=== PATIENT | male | born 1990 | race African-American/Black ===

== ENCOUNTER 2021-06-02 00:35 | Inpatient (IN) ==
[2021-06-02] MEDS ORDERED: SODIUM CHLORIDE 0.9% 1,000 ML IV STA (01:02)
[2021-06-02] MEDS ORDERED: THIAMINE INJ 100 MG, FOLIC ACID INJ 1 MG, MAGNESIUM SULF INJ 2 GM, MULTIVITAMIN INJ 10 ... IV STA (01:02)
[2021-06-02 01:29] LABS: Basophils # 0.1 10*3/uL (0.0-0.2); Basophils % 2.4 % (0.0-0.8); Eosinophils # 0.2 10*3/uL (0.0-0.87); Eosinophils % 3.3 % (0.00-10.9); Hematocrit 39.9 VOL% (42.0-52.0); Hemoglobin 14.2 GM/DL (14.0-18.0); Immature Granulocytes % 0.4 %; Immature Granulocytes Absolute 0.02 #; Lymphocytes # 1.6 10*3/uL (1.4-4.0); Lymphocytes % 35.8 % (21.2-54.2); Mean Corpuscular HGB Conc 35.6 GM/DL (32-36); Mean Corpuscular Volume 100.8 FL (87-102); Mean Platelet Volume 10.1 FL (9.6-12.0); Monocytes % 17.4 % (1.7-12.7); Neutrophils % 40.7 % (38.7-73.9); Platelet Count 122 T/CUMM (130-400); Red Blood Count 3.96 MC/CUMM (3.8-5.5); Red Cell Distribution Width 12.8 % (9.3-17.3); White Blood Count 4.5 T/CUMM (4-12)
[2021-06-02 01:40] LABS: Bilirubin,Urine Negative (Negative); Blood, Urine Negative (Negative); Glucose,Urine (UA) Negative (Negative); Ketones,Urine Negative (Negative); Nitrite,Urine Negative (Negative); Protein,Urine Negative; RBC,Urine 3 /HPF (0-4); Squamous Epithelial Cell,Urine Occasional /HPF (0-10); Urine Appearance CLEAR (Clear); Urine Color Yellow (Yellow); Urine Specific Gravity 1.006 (1.001-1.035)
[2021-06-02 01:47] LABS: Barbiturates Screen,Urine Negative (Negative); Benzodiazepines Screen,Urine Negative (Negative); Cannabinoid Screen,Urine Negative (Negative); Opiate Screen,Urine Negative (Negative); Phencyclidine Screen,Urine Negative (Negative)
[2021-06-02 02:12] LABS: Albumin 4.3 G/DL (3.4-5.0); Bilirubin,Total 0.7 MG/DL (0.20-1.00); Calcium 9.3 MG/DL (8.5-10.1); Osmolality,Calculated 273.7 MOS/KG (273-304); Potassium 3.2 MMOL/L (3.5-5.1); Total Protein 8.2 G/DL (6.4-8.2)
[2021-06-02 02:33] LABS: Eosinophils 2 % (0-10); Lymphocytes 29 % (20-55); Platelet Estimate Normal; Segmented Neutrophils 56 % (50-85); Total Cells Counted 100
[2021-06-02 02:34] LABS: Macrocytosis Slight
[2021-06-02 02:36] LABS: Polychromasia Slight
[2021-06-02] MEDS ORDERED: ACETAMINOPHEN 325 MG TABLET PO PRN (05:07)
[2021-06-02] MEDS ORDERED: SODIUM CHLORIDE 0.9% 1,000 ML IV SCH (05:30)
[2021-06-02] MEDS: ENOXAPARIN 40 MG/0.4 ML SYRINGE SUBCUT SCH (06:42)
[2021-06-02] MEDS ORDERED: PANTOPRAZOLE 40 MG TABLET PO SCH (09:00)
[2021-06-02] MEDS: ONDANSETRON 4 MG/2 ML VIAL IV PRN ×2 (10:38→20:18)
[2021-06-02] MEDS: MORPHINE 2 MG/1 ML SYRINGE IV PRN ×3 (10:42→21:25)
[2021-06-02 13:15] LABS: Hepatitis B Core IgM Quant 0.09 Index; Hepatitis B Surface Ag Quant < 0.10 Index; Hepatitis B Surface Ag Result Non-Reactive (NonReactive); Hepatitis C Virus Ab Quant < 0.02 Index; Hepatitis C Virus Ab Result Non-Reactive (NonReactive)
[2021-06-02] MEDS ORDERED: LORazepam 2 MG/1 ML VIAL IV PRN (13:29)
[2021-06-02] MEDS: PANTOPRAZOLE 40 MG VIAL IV SCH (13:57)
[2021-06-02] MEDS: POTASSIUM CHLORIDE RIDER 10 MEQ/100 ML PREMIX IV SCH ×5 (13:57→20:19)
[2021-06-02] MEDS ORDERED: FOLIC ACID IV SCH (14:00)
[2021-06-02] MEDS ORDERED: [UNRECOGNIZED DRUG - OTHER] IV SCH (14:00)
[2021-06-02] MEDS ORDERED: THIAMINE IV SCH (14:00)
[2021-06-02] MEDS ORDERED: MULTIVITAMIN IV SCH (14:00)
[2021-06-02] MEDS ORDERED: THIAMINE INJ 100 MG, FOLIC ACID INJ 1 MG, MULTIVITAMIN INJ 10 ML in SODIUM CHLORIDE 0.9... IV SCH (14:00)
[2021-06-02] MEDS ORDERED: LORazepam 2 MG/1 ML VIAL IV ONE (14:58)
[2021-06-02] MEDS: [UNRECOGNIZED DRUG - OTHER] IV SCH (15:25)
[2021-06-02] MEDS: MULTIVITAMIN IV SCH (15:25)
[2021-06-02] MEDS: FOLIC ACID IV SCH (15:25)
[2021-06-02] MEDS: THIAMINE IV SCH (15:25)
[2021-06-02 15:35] LABS: Basophils # 0.1 10*3/uL (0.0-0.2); Basophils % 1.6 % (0.0-0.8); Eosinophils # 0.1 10*3/uL (0.0-0.87); Eosinophils % 2.5 % (0.00-10.9); Hematocrit 32.8 VOL% (42.0-52.0); Hemoglobin 11.4 GM/DL (14.0-18.0); Immature Granulocytes % 0.9 %; Immature Granulocytes Absolute 0.04 #; Lymphocytes # 1.6 10*3/uL (1.4-4.0); Lymphocytes % 36.2 % (21.2-54.2); Mean Corpuscular HGB Conc 34.8 GM/DL (32-36); Mean Corpuscular Volume 104.8 FL (87-102); Mean Platelet Volume 9.9 FL (9.6-12.0); Monocytes % 18.3 % (1.7-12.7); Neutrophils % 40.5 % (38.7-73.9); Platelet Count 84 T/CUMM (130-400); Red Blood Count 3.13 MC/CUMM (3.8-5.5); Red Cell Distribution Width 12.9 % (9.3-17.3); White Blood Count 4.4 T/CUMM (4-12)
[2021-06-02 16:01] LABS: Albumin 3.7 G/DL (3.4-5.0); Osmolality,Calculated 270.8 MOS/KG (273-304); Potassium 2.6 MMOL/L (3.5-5.1); Total Protein 6.8 G/DL (6.4-8.2)
[2021-06-02 16:31] LABS: Eosinophils 6 % (0-10); Lymphocytes 22 % (20-55); Segmented Neutrophils 64 % (50-85); Total Cells Counted 100
[2021-06-02 16:32] LABS: Hypochromasia 1+; Platelet Estimate Decreased
[2021-06-02] MEDS: LORazepam 2 MG/1 ML VIAL IV PRN ×2 (18:30→22:27)
[2021-06-02] MEDS: levETIRAcetam 500 MG TABLET PO SCH (20:18)
[2021-06-03] MEDS: MORPHINE 2 MG/1 ML SYRINGE IV PRN ×5 (01:22→19:46)
[2021-06-03] MEDS: LORazepam 2 MG/1 ML VIAL IV PRN ×4 (02:31→22:10)
[2021-06-03] MEDS: MULTIVITAMIN IV SCH ×2 (03:42→09:33)
[2021-06-03] MEDS: THIAMINE IV SCH ×2 (03:42→09:33)
[2021-06-03] MEDS: [UNRECOGNIZED DRUG - OTHER] IV SCH ×2 (03:42→09:33)
[2021-06-03] MEDS: FOLIC ACID IV SCH ×2 (03:42→09:33)
[2021-06-03] MEDS: ENOXAPARIN 40 MG/0.4 ML SYRINGE SUBCUT SCH (04:35)
[2021-06-03 05:25] LABS: Basophils # 0.1 10*3/uL (0.0-0.2); Basophils % 1.4 % (0.0-0.8); Eosinophils # 0.2 10*3/uL (0.0-0.87); Eosinophils % 3.6 % (0.00-10.9); Hematocrit 37.4 VOL% (42.0-52.0); Hemoglobin 12.8 GM/DL (14.0-18.0); Immature Granulocytes % 0.2 %; Immature Granulocytes Absolute 0.01 #; Lymphocytes # 1.3 10*3/uL (1.4-4.0); Lymphocytes % 29.8 % (21.2-54.2); Mean Corpuscular HGB Conc 34.2 GM/DL (32-36); Mean Corpuscular Volume 103.9 FL (87-102); Mean Platelet Volume 10.8 FL (9.6-12.0); NRBC # 0.02 10*3/uL; Platelet Count 92 T/CUMM (130-400); Red Cell Distribution Width 12.5 % (9.3-17.3); White Blood Count 4.2 T/CUMM (4-12)
[2021-06-03 05:35] LABS: Risk Ratio 2.47; VLDL Cholesterol 10.4 MG/DL
[2021-06-03 05:36] LABS: Albumin 3.5 G/DL (3.4-5.0); Bilirubin,Total 1.5 MG/DL (0.20-1.00); Calcium 8.7 MG/DL (8.5-10.1); Potassium 3.2 MMOL/L (3.5-5.1); Total Protein 6.8 G/DL (6.4-8.2)
[2021-06-03] MEDS ORDERED: POTASSIUM CHLORIDE 20 MEQ TABLET PO ONE (05:57)
[2021-06-03 06:08] LABS: Anisocytosis 1+; Atypical Lymphocytes Few; Band Neutrophils 3 % (0-10); Eosinophils 6 % (0-10); Lymphocytes 30 % (20-55); Macrocytosis 1+; Nucleated Red Blood Cells 1 (0-5); Platelet Estimate Decreased; Segmented Neutrophils 48 % (50-85); Smudge Cells Few; Total Cells Counted 100
[2021-06-03] MEDS ORDERED: FOLIC ACID 1 MG TABLET PO SCH (09:00)
[2021-06-03] MEDS ORDERED: THIAMINE 100 MG TABLET PO SCH (09:00)
[2021-06-03] MEDS ORDERED: MULTIVITAMIN (CENTRUM) TABLET PO SCH (09:00)
[2021-06-03] MEDS: levETIRAcetam 500 MG TABLET PO SCH ×2 (09:23→20:29)
[2021-06-03] MEDS: PANTOPRAZOLE 40 MG VIAL IV SCH (09:24)
[2021-06-03] MEDS: DEXTROSE 5% LACTATED RINGERS 1,000 ML IV SCH ×2 (09:50→20:08)
[2021-06-03] MEDS: chlordiazePOXIDE 25 MG CAPSULE PO SCH ×2 (15:04→20:29)
[2021-06-03] MEDS: ONDANSETRON 4 MG/2 ML VIAL IV PRN (22:12)
[2021-06-04] MEDS: MORPHINE 2 MG/1 ML SYRINGE IV PRN ×4 (00:18→22:41)
[2021-06-04] MEDS: LORazepam 2 MG/1 ML VIAL IV PRN ×2 (02:31→09:10)
[2021-06-04] MEDS: DEXTROSE 5% LACTATED RINGERS 1,000 ML IV SCH ×3 (05:27→22:45)
[2021-06-04] MEDS: ENOXAPARIN 40 MG/0.4 ML SYRINGE SUBCUT SCH (05:27)
[2021-06-04 06:32] LABS: Basophils # 0.1 10*3/uL (0.0-0.2); Basophils % 1.2 % (0.0-0.8); Eosinophils # 0.3 10*3/uL (0.0-0.87); Eosinophils % 5.8 % (0.00-10.9); Hematocrit 37.2 VOL% (42.0-52.0); Hemoglobin 12.7 GM/DL (14.0-18.0); Immature Granulocytes % 0.4 %; Immature Granulocytes Absolute 0.02 #; Lymphocytes # 1.7 10*3/uL (1.4-4.0); Lymphocytes % 33.9 % (21.2-54.2); Mean Corpuscular HGB Conc 34.1 GM/DL (32-36); Mean Corpuscular Volume 104.8 FL (87-102); Mean Platelet Volume 11.7 FL (9.6-12.0); Monocytes % 15.5 % (1.7-12.7); Neutrophils % 43.2 % (38.7-73.9); Platelet Count 100 T/CUMM (130-400); Red Blood Count 3.55 MC/CUMM (3.8-5.5); Red Cell Distribution Width 12.3 % (9.3-17.3)
[2021-06-04 06:48] LABS: Albumin 3.5 G/DL (3.4-5.0); Bilirubin,Total 2.3 MG/DL (0.20-1.00); Calcium 9.2 MG/DL (8.5-10.1); Potassium 3.5 MMOL/L (3.5-5.1); Total Protein 6.6 G/DL (6.4-8.2)
[2021-06-04 07:42] LABS: Hypochromasia 1+; Platelet Estimate Decreased
[2021-06-04] MEDS: MULTIVITAMIN (BEROCCA) TABLET PO SCH (09:11)
[2021-06-04] MEDS: levETIRAcetam 500 MG TABLET PO SCH ×2 (09:11→22:29)
[2021-06-04] MEDS: FOLIC ACID 1 MG TABLET PO SCH (09:11)
[2021-06-04] MEDS: THIAMINE 100 MG TABLET PO SCH (09:11)
[2021-06-04] MEDS: chlordiazePOXIDE 25 MG CAPSULE PO SCH ×3 (09:11→22:29)
[2021-06-04] MEDS ORDERED: MORPHINE 2 MG/1 ML SYRINGE IV ONE (10:55)
[2021-06-05] MEDS: LORazepam 2 MG/1 ML VIAL IV PRN (01:44)
[2021-06-05] MEDS: MORPHINE 2 MG/1 ML SYRINGE IV PRN ×5 (03:35→20:55)
[2021-06-05] MEDS: ENOXAPARIN 40 MG/0.4 ML SYRINGE SUBCUT SCH (05:52)
[2021-06-05 06:25] LABS: Basophils # 0.1 10*3/uL (0.0-0.2); Basophils % 0.9 % (0.0-0.8); Eosinophils # 0.2 10*3/uL (0.0-0.87); Eosinophils % 4.3 % (0.00-10.9); Hematocrit 34.7 VOL% (42.0-52.0); Hemoglobin 11.8 GM/DL (14.0-18.0); Immature Granulocytes % 1.4 %; Immature Granulocytes Absolute 0.08 #; Lymphocytes # 1.7 10*3/uL (1.4-4.0); Lymphocytes % 31.3 % (21.2-54.2); Mean Corpuscular Volume 106.1 FL (87-102); Mean Platelet Volume 11.4 FL (9.6-12.0); Monocytes % 18.3 % (1.7-12.7); NRBC # 0.02 10*3/uL; Neutrophils % 43.8 % (38.7-73.9); Platelet Count 110 T/CUMM (130-400); Red Blood Count 3.27 MC/CUMM (3.8-5.5); Red Cell Distribution Width 12.3 % (9.3-17.3); White Blood Count 5.5 T/CUMM (4-12)
[2021-06-05 06:31] LABS: Eosinophils 2 % (0-10); Lymphocytes 35 % (20-55); Platelet Estimate Decreased; Segmented Neutrophils 57 % (50-85); Total Cells Counted 100
[2021-06-05 06:32] LABS: Hypochromasia Slight; Microcytosis Slight
[2021-06-05 06:54] LABS: Osmolality,Calculated 276.3 MOS/KG (273-304); Potassium 3.2 MMOL/L (3.5-5.1)
[2021-06-05] MEDS ORDERED: POTASSIUM CHLORIDE 20 MEQ TABLET PO ONE (08:00)
[2021-06-05] MEDS: DEXTROSE 5% LACTATED RINGERS 1,000 ML IV SCH ×2 (09:00→20:59)
[2021-06-05] MEDS: ONDANSETRON 4 MG/2 ML VIAL IV PRN (09:12)
[2021-06-05] MEDS: THIAMINE 100 MG TABLET PO SCH (09:33)
[2021-06-05] MEDS: FOLIC ACID 1 MG TABLET PO SCH (09:33)
[2021-06-05] MEDS: levETIRAcetam 500 MG TABLET PO SCH ×2 (09:34→20:55)
[2021-06-05] MEDS: MULTIVITAMIN (BEROCCA) TABLET PO SCH (09:34)
[2021-06-05] MEDS: chlordiazePOXIDE 25 MG CAPSULE PO SCH ×3 (09:34→20:54)
[2021-06-05] MEDS: NICOTINE 14 MG/24 HR PATCH TRANSDERM SCH (11:59)
[2021-06-05] MEDS: PANTOPRAZOLE 40 MG TABLET PO SCH (12:17)
[2021-06-06] MEDS: MORPHINE 2 MG/1 ML SYRINGE IV PRN ×6 (00:51→22:10)
[2021-06-06] MEDS: LORazepam 2 MG/1 ML VIAL IV PRN ×3 (02:45→20:34)
[2021-06-06] MEDS: ENOXAPARIN 40 MG/0.4 ML SYRINGE SUBCUT SCH (05:31)
[2021-06-06 06:20] LABS: Basophils # 0.1 10*3/uL (0.0-0.2); Basophils % 1.8 % (0.0-0.8); Eosinophils # 0.3 10*3/uL (0.0-0.87); Eosinophils % 5.5 % (0.00-10.9); Hematocrit 37.1 VOL% (42.0-52.0); Hemoglobin 12.4 GM/DL (14.0-18.0); Immature Granulocytes % 0.6 %; Immature Granulocytes Absolute 0.03 #; Lymphocytes # 1.9 10*3/uL (1.4-4.0); Lymphocytes % 37.9 % (21.2-54.2); Mean Corpuscular HGB Conc 33.4 GM/DL (32-36); Mean Corpuscular Volume 108.5 FL (87-102); Mean Platelet Volume 11.4 FL (9.6-12.0); Monocytes % 17.8 % (1.7-12.7); Neutrophils % 36.4 % (38.7-73.9); Platelet Count 104 T/CUMM (130-400); Red Blood Count 3.42 MC/CUMM (3.8-5.5); Red Cell Distribution Width 12.5 % (9.3-17.3); White Blood Count 5.1 T/CUMM (4-12)
[2021-06-06 06:40] LABS: Albumin 3.5 G/DL (3.4-5.0); Bilirubin,Total 1.1 MG/DL (0.20-1.00); Calcium 8.7 MG/DL (8.5-10.1); Osmolality,Calculated 274.4 MOS/KG (273-304); Potassium 3.7 MMOL/L (3.5-5.1); Total Protein 6.3 G/DL (6.4-8.2)
[2021-06-06 06:42] LABS: Eosinophils 4 % (0-10); Lymphocytes 48 % (20-55); Platelet Estimate Decreased; Segmented Neutrophils 41 % (50-85); Total Cells Counted 100
[2021-06-06 06:43] LABS: Hypochromasia Slight; Microcytosis Slight
[2021-06-06] MEDS ORDERED: MAGNESIUM SULF RIDER 2 GM/50 ML PREMIX IV PRN (07:20)
[2021-06-06] MEDS ORDERED: MAGNESIUM SULF RIDER 4 GM/100 ML PREMIX IV PRN (07:20)
[2021-06-06] MEDS: chlordiazePOXIDE 25 MG CAPSULE PO SCH ×3 (09:44→20:33)
[2021-06-06] MEDS: FOLIC ACID 1 MG TABLET PO SCH (09:44)
[2021-06-06] MEDS: MULTIVITAMIN (BEROCCA) TABLET PO SCH (09:44)
[2021-06-06] MEDS: levETIRAcetam 500 MG TABLET PO SCH ×2 (09:44→20:33)
[2021-06-06] MEDS: PANTOPRAZOLE 40 MG TABLET PO SCH (09:45)
[2021-06-06] MEDS: THIAMINE 100 MG TABLET PO SCH (09:45)
[2021-06-06] MEDS: NICOTINE 14 MG/24 HR PATCH TRANSDERM SCH (09:45)
[2021-06-06] MEDS: DEXTROSE 5% LACTATED RINGERS 1,000 ML IV SCH ×2 (13:11→23:49)
[2021-06-07] MEDS: LORazepam 2 MG/1 ML VIAL IV PRN (01:04)
[2021-06-07] MEDS: MORPHINE 2 MG/1 ML SYRINGE IV PRN ×3 (02:22→10:45)
[2021-06-07] MEDS: ENOXAPARIN 40 MG/0.4 ML SYRINGE SUBCUT SCH (05:14)
[2021-06-07 05:49] LABS: Basophils # 0.1 10*3/uL (0.0-0.2); Basophils % 1.4 % (0.0-0.8); Eosinophils # 0.3 10*3/uL (0.0-0.87); Hematocrit 35.1 VOL% (42.0-52.0); Hemoglobin 11.8 GM/DL (14.0-18.0); Immature Granulocytes % 0.6 %; Immature Granulocytes Absolute 0.03 #; Lymphocytes # 1.6 10*3/uL (1.4-4.0); Lymphocytes % 32.1 % (21.2-54.2); Mean Corpuscular HGB Conc 33.6 GM/DL (32-36); Mean Corpuscular Volume 108.7 FL (87-102); Mean Platelet Volume 10.7 FL (9.6-12.0); Monocytes % 21.6 % (1.7-12.7); Neutrophils % 39.3 % (38.7-73.9); Platelet Count 151 T/CUMM (130-400); Red Blood Count 3.23 MC/CUMM (3.8-5.5); Red Cell Distribution Width 12.6 % (9.3-17.3)
[2021-06-07 06:15] LABS: Eosinophils 4 % (0-10); Lymphocytes 33 % (20-55); Segmented Neutrophils 49 % (50-85); Total Cells Counted 100
[2021-06-07 06:16] LABS: Hypochromasia Slight; Microcytosis Slight; Platelet Estimate Adequate
[2021-06-07 07:10] LABS: Albumin 3.2 G/DL (3.4-5.0); Bilirubin,Total 0.7 MG/DL (0.20-1.00); Calcium 8.8 MG/DL (8.5-10.1); Osmolality,Calculated 280.1 MOS/KG (273-304); Potassium 3.3 MMOL/L (3.5-5.1); Total Protein 6.1 G/DL (6.4-8.2)
[2021-06-07] MEDS ORDERED: chlordiazePOXIDE 10 MG CAPSULE PO SCH (09:00)
[2021-06-07] MEDS ORDERED: POTASSIUM CHLORIDE 20 MEQ TABLET PO ONE (09:30)
[2021-06-07] MEDS ORDERED: INFLUENZA VIRUS VACCINE 0.5 ML SYRINGE IM ONE (09:43)
[2021-06-07] MEDS: THIAMINE 100 MG TABLET PO SCH (10:43)
[2021-06-07] MEDS: MULTIVITAMIN (BEROCCA) TABLET PO SCH (10:43)
[2021-06-07] MEDS: FOLIC ACID 1 MG TABLET PO SCH (10:43)
[2021-06-07] MEDS: NICOTINE 14 MG/24 HR PATCH TRANSDERM SCH (10:44)
[2021-06-07] MEDS: PANTOPRAZOLE 40 MG TABLET PO SCH (10:44)
[2021-06-07] MEDS: levETIRAcetam 500 MG TABLET PO SCH ×3 (10:44→22:18)
[2021-06-07] MEDS: CITALOPRAM 20 MG TABLET PO SCH (12:29)
[2021-06-07] MEDS: chlordiazePOXIDE 25 MG CAPSULE PO SCH (12:29)
[2021-06-07] MEDS: DEXTROSE 5% LACTATED RINGERS 1,000 ML IV SCH (14:19)
[2021-06-08] MEDS: DEXTROSE 5% LACTATED RINGERS 1,000 ML IV SCH ×4 (02:46→19:19)
[2021-06-08 05:14] LABS: Basophils # 0.1 10*3/uL (0.0-0.2); Eosinophils # 0.2 10*3/uL (0.0-0.87); Eosinophils % 3.4 % (0.00-10.9); Hematocrit 34.8 VOL% (42.0-52.0); Hemoglobin 11.5 GM/DL (14.0-18.0); Immature Granulocytes % 0.4 %; Immature Granulocytes Absolute 0.02 #; Lymphocytes # 1.7 10*3/uL (1.4-4.0); Mean Corpuscular Volume 108.1 FL (87-102); Mean Platelet Volume 10.9 FL (9.6-12.0); Monocytes % 17.5 % (1.7-12.7); Neutrophils % 44.7 % (38.7-73.9); Platelet Count 179 T/CUMM (130-400); Red Blood Count 3.22 MC/CUMM (3.8-5.5); Red Cell Distribution Width 12.5 % (9.3-17.3)
[2021-06-08 05:41] LABS: Atypical Lymphocytes Few; Band Neutrophils 3 % (0-10); Eosinophils 8 % (0-10); Hypochromasia Slight; Lymphocytes 32 % (20-55); Segmented Neutrophils 46 % (50-85); Total Cells Counted 100
[2021-06-08 05:42] LABS: Microcytosis 1+
[2021-06-08 05:43] LABS: Albumin 3.2 G/DL (3.4-5.0); Bilirubin,Total 0.6 MG/DL (0.20-1.00); Calcium 8.7 MG/DL (8.5-10.1); Osmolality,Calculated 279.1 MOS/KG (273-304); Platelet Estimate Adequate; Potassium 3.9 MMOL/L (3.5-5.1); Total Protein 5.8 G/DL (6.4-8.2)
[2021-06-08] MEDS: ENOXAPARIN 40 MG/0.4 ML SYRINGE SUBCUT SCH (06:44)
[2021-06-08] MEDS: PANTOPRAZOLE 40 MG TABLET PO SCH (09:06)
[2021-06-08] MEDS: levETIRAcetam 500 MG TABLET PO SCH ×2 (09:06→20:04)
[2021-06-08] MEDS: MULTIVITAMIN (BEROCCA) TABLET PO SCH (09:07)
[2021-06-08] MEDS: THIAMINE 100 MG TABLET PO SCH (09:07)
[2021-06-08] MEDS: FOLIC ACID 1 MG TABLET PO SCH (09:07)
[2021-06-08] MEDS: CITALOPRAM 20 MG TABLET PO SCH (09:07)
[2021-06-08] MEDS: NICOTINE 14 MG/24 HR PATCH TRANSDERM SCH (09:07)
[2021-06-08] MEDS: chlordiazePOXIDE 25 MG CAPSULE PO SCH (10:09)
[2021-06-08] MEDS: MAGNESIUM OXIDE 400 MG TABLET PO SCH ×2 (10:09→20:04)
[2021-06-09] MEDS: DEXTROSE 5% LACTATED RINGERS 1,000 ML IV SCH (04:07)
[2021-06-09] MEDS: ENOXAPARIN 40 MG/0.4 ML SYRINGE SUBCUT SCH (05:01)
[2021-06-09 05:41] LABS: Basophils # 0.1 10*3/uL (0.0-0.2); Basophils % 1.2 % (0.0-0.8); Eosinophils # 0.2 10*3/uL (0.0-0.87); Eosinophils % 3.6 % (0.00-10.9); Hematocrit 36.7 VOL% (42.0-52.0); Hemoglobin 12.3 GM/DL (14.0-18.0); Immature Granulocytes % 0.6 %; Immature Granulocytes Absolute 0.03 #; Lymphocytes # 1.7 10*3/uL (1.4-4.0); Lymphocytes % 34.3 % (21.2-54.2); Mean Corpuscular HGB Conc 33.5 GM/DL (32-36); Mean Corpuscular Volume 107.6 FL (87-102); Mean Platelet Volume 10.4 FL (9.6-12.0); Monocytes % 18.7 % (1.7-12.7); Neutrophils % 41.6 % (38.7-73.9); Platelet Count 235 T/CUMM (130-400); Red Blood Count 3.41 MC/CUMM (3.8-5.5); Red Cell Distribution Width 12.5 % (9.3-17.3)
[2021-06-09 06:10] LABS: Atypical Lymphocytes Few; Eosinophils 5 % (0-10); Hypochromasia Slight; Lymphocytes 34 % (20-55); Microcytosis Slight; Platelet Estimate Adequate; Segmented Neutrophils 49 % (50-85); Total Cells Counted 100
[2021-06-09 06:40] LABS: Albumin 3.4 G/DL (3.4-5.0); Bilirubin,Total 0.6 MG/DL (0.20-1.00); Calcium 8.9 MG/DL (8.5-10.1); Osmolality,Calculated 275.5 MOS/KG (273-304); Potassium 3.8 MMOL/L (3.5-5.1); Total Protein 6.6 G/DL (6.4-8.2)
[2021-06-09] MEDS: MULTIVITAMIN (BEROCCA) TABLET PO SCH (09:17)
[2021-06-09] MEDS: FOLIC ACID 1 MG TABLET PO SCH (09:17)
[2021-06-09] MEDS: MAGNESIUM OXIDE 400 MG TABLET PO SCH (09:17)
[2021-06-09] MEDS: levETIRAcetam 500 MG TABLET PO SCH (09:17)
[2021-06-09] MEDS: CITALOPRAM 20 MG TABLET PO SCH (09:17)
[2021-06-09] MEDS: THIAMINE 100 MG TABLET PO SCH (09:17)
[2021-06-09] MEDS: PANTOPRAZOLE 40 MG TABLET PO SCH (09:17)
[2021-06-09] MEDS: chlordiazePOXIDE 25 MG CAPSULE PO SCH (09:18)
[2021-06-09] MEDS: NICOTINE 14 MG/24 HR PATCH TRANSDERM SCH (09:18)
[2021-06-09 11:49] VITALS: BP 132/97
== END 2021-06-09 12:00 | disposition home or self-care (01) | DRG 440 ==
LOC: EDBD → EDUNIT# → N.ED 00:35 → N.EDINP 00:35 → N.TELES 05:26 → SUATTDRO 15:02 → N.CC 15:21 → N.3E 06-03 10:25
PROVIDERS: ADMIT Internal Medicine; ATTEND Internal Medicine